=== PATIENT | male | born 1965 | race Hispanic/Latino ===

== ENCOUNTER 2017-06-04 06:34 | Emergency (ER) | payer OTHER ==
[~2017-06-04] VITALS: Ht 170.2 cm; Wt 72.6 kg
[2017-06-04] MEDS ORDERED: NORCO 5-325 TA1 EACH PO (08:13)
== END 2017-06-04 08:41 | disposition home or self-care (01) ==
LOC: ED 06:34
PROC: 2W3DX1Z Immobilization of Left Lower Arm using Splint (ICD-10-PCS; principal; 2017-06-04)
DX: S52.502A Unspecified fracture of the lower end of left radius, initial encounter for closed fracture (principal); W18.39XA Other fall on same level, initial encounter; Y99.0 Civilian activity done for income or pay
CPT/HCPCS: 29125; 73110; 73130; 99283

== ENCOUNTER 2023-04-01 13:34 | Emergency (ER) | payer OTHER | END 2023-04-01 17:13 | disposition home or self-care (01) | LOC: ED 13:34 | DX: M70.21 Olecranon bursitis, right elbow (principal) ==

== ENCOUNTER 2023-04-19 13:19 | Emergency (ER) | payer OTHER ==
[~2023-04-19] VITALS: Ht 167.6 cm; Wt 72.1 kg
--- OUTSIDE RECORDS SUMMARY | ~2023-04-19 | XMS | Continuity of Care Document ---
Demographics + + + | Address | [address] | | | [place] [address] | + + + | Preferred Language | Unknown | + + + | Marital Status | | + + + | Mormonism Affiliation | Unknown | + + + | Race | Unknown | + + + | Ethnic Group | or | + + + Author + + + | Author | [facility] | + + + | Organization | [facility] | + + + | Address | [address] | | | [place] [address] | + + + | Phone | | + + + Care Team Providers + + + + | Care Logistics Support Name | Role | Phone | + + + + Unavailable | Unavailable | + + + + Unavailable | Unavailable | + + + + Allergies and Intolerances + + + + + + | date | description | facility | reaction | severity | + + + + + + | (no date) | No Known Drug | [facility] | (no reaction) | (no severity) | | | Allergies | | | | + + + + + + Encounters No information. Functional Status No information. Immunizations No information. Medications No information. Problems + + + + | date | description | facility | + + + + | 2017-06-04 00:00 | Fracture of distal end of | [facility] | | | left radius | | + + + + | 2023-04-01 00:00 | Olecranon bursitis of | [facility] | | | right elbow | | + + + + | 2023-04-01 13:34 | OLECRANON BURSITIS, RIGHT | [facility] | | | ELBOW | | + + + + | 2023-04-01 13:34 | LOCALIZED SWELLING, MASS | [facility] | | | AND LUMP, RIGHT UPPER LIMB | | + + + + Procedures No information. Results/Labs No information. Social History No information. Vital Signs + + + +---------+ | date | measurement | value | units | + + + +---------+ | 2023-04-01 00:00 | BMI | 25.8 | kg/m2 | + + + +---------+ | 2023-04-01 00:00 | BP_diastolic | 80 | mmHg | + + + +---------+ | 2023-04-01 00:00 | BP_systolic | 121 | mmHg | + + + +---------+ | 2023-04-01 00:00 | heart_rate | 76 | /min | + + + +---------+ | 2023-04-01 00:00 | height_metric | 170.18 | cm | + + + +---------+ | 2023-04-01 00:00 | height_standard | 67 | in | + + + +---------+ | 2023-04-01 00:00 | o2_saturation | 98 | % | + + + +---------+ | 2023-04-01 00:00 | respiration_rate | 14 | /min | + + + +---------+ | 2023-04-01 00:00 | temperature_metric | 36.83 | C | | | | | | + + + +---------+ | 2023-04-01 00:00 | | 98.3 | F | | | temperature_standar | | | | | d | | | + + + +---------+ | 2023-04-01 00:00 | weight_metric | 74.84 | kg | + + + +---------+ | 2023-04-01 00:00 | weight_standard | 164.99 | lb | + + + +---------+ | 2023-04-01 00:00 | weight_standard | 165 | lb | + + + +---------+"
--- OUTSIDE RECORDS SUMMARY | ~2023-04-19 | XMS | Continuity of Care Document ---
Demographics + + + | Address | [address] | | | [place] [address] | + + + | Preferred Language | Unknown | + + + | Marital Status | | + + + | Sikhism Affiliation | Unknown | + + + | Race | Unknown | + + + | Ethnic Group | or | + + + Author + + + | Author | [facility] | + + + | Organization | [facility] | + + + | Address | [address] | | | [place] [address] | + + + | Phone | | + + + Care Team Providers + + + + | Care Supervisor Pig Machine Name | Role | Phone | + [...] | Fracture of distal end of | [facility] | | | left radius | | + + + + | 2023-04-01 00:00 | Olecranon bursitis of | [facility] | | | right elbow | | [...]
[~2023-04-19 13:19] MED LIST: NORCO 5-325 TA1 EACH PO
--- OUTSIDE RECORDS SUMMARY | 2023-04-19 13:26 | XMS ---
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 E.Rohan VISIT COUNT (12 MO.) 2 [facility] TOTAL 2 NOTE: Visits indicate total known visits. ED/UCC VISIT TRACKING (12 MO.) 04/19/2023 13:[address] [facility] [place] TYPE: Emergency COMPLAINT: - R ELBOW SWELLING 04/01/2023 13:[address] [facility] [place] TYPE: Emergency COMPLAINT: - R ELBOW SWELLING INJURY DIAGNOSES: - Localized swelling, mass and lump, right upper limb - Olecranon bursitis, right elbow INPATIENT VISIT TRACKING (12 MO.) No inpatient visits to display in this time frame [email or web address]
[2023-04-19] MEDS ORDERED: CEPHALEXIN500 M1 PO (15:11)
[2023-04-19 15:16] VITALS: BP 119/77
== END 2023-04-19 15:23 | disposition home or self-care (01) ==
LOC: ED 13:19
DX: M70.21 Olecranon bursitis, right elbow (principal)
CPT/HCPCS: 10060; 99283-25; A9270